=== PATIENT | female | born 1960 | race Caucasian/White ===

== ENCOUNTER 2022-10-29 10:31 | Inpatient (IN) | payer OTHER ==
[~2022-10-29] VITALS: Ht 160 cm; Wt 69.1 kg
[2022-10-29 10:47] LABS: Basophils # (auto) 0 10 ^3/uL (0-0.2); Basophils % (auto) 0.5 % (0.0-2.0); Eosinophils # (auto) 0.1 10 ^3/uL (0-0.8); Eosinophils % (auto) 1.5 % (0.0-7.0); Hematocrit 45.9 % (36.0-46.0); Hemoglobin 15.9 g/dL (12.2-16.2); Lymphocytes # (auto) 2.4 10 ^3/uL (0.4-5.4); Lymphocytes % (auto) 48.1 % (10.0-50.0); Mean Corpuscular Hemoglobin 32.6 pg (28.0-32.0); Mean Corpuscular Hgb Conc. 34.7 g/dL (32.0-36.0); Mean Corpuscular Volume 93.9 fL (80.0-100.0); Monocytes # (auto) 0.5 10 ^3/uL (0-1.3); Monocytes % (auto) 9.7 % (0.0-12.0); Neutrophils % (auto) 40.2 % (37.0-80.0); Nucleated Red Blood Cells % 0.2 %; Red Blood Cells 4.89 10^6/uL (4.0-5.20); Red Cell Distribution Width 12.5 % (11.8-14.3); White Blood Cell 5.1 10^3/uL (4.4-10.8)
[2022-10-29] MEDS ORDERED: ASPirin 325 MG TAB PO ONE (11:00)
[2022-10-29 11:05] LABS: Albumin 4.2 g/dL (3.4-5.0); BUN/Creatinine Ratio 20.7; Calcium 9.4 mg/dL (8.5-10.1); Potassium 3.8 mmol/L (3.5-5.1)
[2022-10-29 11:09] LABS: Bilirubin, Total 0.8 mg/dL (0.2-1.0); Total Protein 7.5 g/dL (6.4-8.2)
[2022-10-29] MEDS ORDERED: LABETALOL HCL 5 MG/ML 4ML SYRINGE IV ONE (11:15)
[2022-10-29] MEDS ORDERED: hydrALAZINE HCL 20 MG/ML VL IV ONE (15:30)
[2022-10-29] MEDS ORDERED: hydrALAZINE HCL 20 MG/ML VL IV PRN (16:00)
[2022-10-29] MEDS ORDERED: NITROGLYCERIN 0.4 MG SL TAB SL PRN (16:00)
[2022-10-29] MEDS ORDERED: ONDANSETRON HCL 4 MG/2 ML VIAL IV PRN (16:00)
[2022-10-29] MEDS ORDERED: MORPHINE SULFATE 4 MG/ML SYR/VIAL IV PRN (16:00)
[2022-10-29 16:35] LABS: Urine Amorphous Crystal FEW /hpf (None Seen); Urine Bacteria FEW /hpf (None Seen); Urine Blood 1+ /uL (Negative); Urine Mucus FEW (None Seen); Urine Specific Gravity 1.017 (1.001-1.035); Urine WBC 2 /hpf (0 - 5)
[2022-10-29] MEDS: SODIUM CHLORIDE 0.9% 1,000 ML IV SCH (16:41)
[2022-10-29 16:51] LABS: INR 1.02 (0.9-1.15)
[2022-10-29] MEDS: ACETAMINOPHEN 325 MG TAB PO PRN ×3 (17:05→23:30)
[2022-10-29] MEDS: ATORVASTATIN 20 MG TAB PO SCH (21:41)
[2022-10-30] MEDS: SODIUM CHLORIDE 0.9% 1,000 ML IV SCH ×3 (02:00→20:51)
[2022-10-30] MEDS ORDERED: HYDROcodone-ACET 5/325MG TAB PO ONE (02:30)
[2022-10-30 06:00] LABS: Basophils # (auto) 0 10 ^3/uL (0-0.2); Basophils % (auto) 0.3 % (0.0-2.0); Eosinophils # (auto) 0.1 10 ^3/uL (0-0.8); Eosinophils % (auto) 2.1 % (0.0-7.0); Hematocrit 43.7 % (36.0-46.0); Hemoglobin 14.8 g/dL (12.2-16.2); Lymphocytes # (auto) 1.6 10 ^3/uL (0.4-5.4); Lymphocytes % (auto) 28.1 % (10.0-50.0); Mean Corpuscular Hemoglobin 31.8 pg (28.0-32.0); Mean Corpuscular Hgb Conc. 33.9 g/dL (32.0-36.0); Monocytes # (auto) 0.5 10 ^3/uL (0-1.3); Monocytes % (auto) 9.7 % (0.0-12.0); Neutrophils # (auto) 3.3 10 ^3/uL (1.6-8.6); Neutrophils % (auto) 59.8 % (37.0-80.0); Nucleated Red Blood Cells % 0.1 %; Red Blood Cells 4.64 10^6/uL (4.0-5.20); Red Cell Distribution Width 12.8 % (11.8-14.3); White Blood Cell 5.5 10^3/uL (4.4-10.8)
[2022-10-30 06:40] LABS: Potassium 3.6 mmol/L (3.5-5.1)
[2022-10-30 06:53] LABS: Albumin 3.8 g/dL (3.4-5.0); BUN/Creatinine Ratio 21.4; Bilirubin, Total 1.1 mg/dL (0.2-1.0); Calcium 8.5 mg/dL (8.5-10.1); Total Protein 6.7 g/dL (6.4-8.2)
[2022-10-30] MEDS: LOSARTAN POTASSIUM 25 MG TAB PO SCH (08:58)
[2022-10-30] MEDS: PANTOPRAZOLE 40 MG/10 ML VIAL INJ IV SCH (08:59)
[2022-10-30] MEDS: ACETAMINOPHEN 325 MG TAB PO PRN (08:59)
[2022-10-30] MEDS: DOCUSATE SOD 100 MG CAP PO SCH (08:59)
[2022-10-30 09:26] VITALS: BP 151/86
[2022-10-30] MEDS ORDERED: ASPirin 81 mg TAB PO SCH (10:00)
[2022-10-30] MEDS ORDERED: amLODIPine BESYLATE 5 MG TAB PO ONE (13:15)
[2022-10-30 14:06] VITALS: BP 127/80
[2022-10-30 17:04] VITALS: BP 141/76
[2022-10-30] MEDS: ATORVASTATIN 20 MG TAB PO SCH (20:50)
[2022-10-30] MEDS ORDERED: LORazepam 2MG/ML-1ML VIAL IV PRN (21:45)
[2022-10-30 22:00] VITALS: BP 126/74
[2022-10-31 05:00] VITALS: BP 127/77
[2022-10-31 08:00] VITALS: BP 134/74
[2022-10-31] MEDS: SODIUM CHLORIDE 0.9% 1,000 ML IV SCH (08:00)
[2022-10-31] MEDS: PANTOPRAZOLE 40 MG/10 ML VIAL INJ IV SCH (09:48)
[2022-10-31] MEDS: DOCUSATE SOD 100 MG CAP PO SCH (09:50)
[2022-10-31] MEDS: LOSARTAN POTASSIUM 25 MG TAB PO SCH (09:50)
[2022-10-31] MEDS ORDERED: amLODIPine BESYLATE 5 MG TAB PO SCH (10:00)
[2022-10-31] MEDS ORDERED: LOSA25TA2 PO (10:24)
[2022-10-31] MEDS ORDERED: ATO40T PO (10:24)
[2022-10-31] MEDS ORDERED: AMLO-496 PO (10:24)
[2022-10-31] MEDS ORDERED: LISI20TA28 PO (10:39)
[2022-10-31 12:00] VITALS: BP 143/92
[2022-10-31 13:43] VITALS: BP 125/78
== END 2022-10-31 15:25 | disposition home or self-care (01) | DRG 304 ==
LOC: ER 10:35 → TELE 15:58 → TELE-WESTW 10-30 07:40
PROVIDERS: ADMIT Nurse Practitioner Family; ATTEND Family Medicine
DX: I16.1 Hypertensive emergency (principal); I67.83 Posterior reversible encephalopathy syndrome; I67.4 Hypertensive encephalopathy; Z20.822 Contact with and (suspected) exposure to COVID-19; I10 Essential (primary) hypertension; Z82.49 Family history of ischemic heart disease and other diseases of the circulatory system; Z88.0 Allergy status to penicillin; Z91.14 Patient's other noncompliance with medication regimen; Z88.8 Allergy status to other drugs, medicaments and biological substances; Z98.51 Tubal ligation status
CPT/HCPCS: 36415; 70450; 70551; 71045; 80053; 81001; 83735; 84484; 85025; 85610; 87426; 93005; 93306; 99291; C9113; G0378

== ENCOUNTER 2023-12-16 10:31 | Emergency (ER) | payer OTHER ==
[~2023-12-16] VITALS: Ht 160 cm; Wt 68.0 kg
[~2023-12-16 10:31] MED LIST: AMLO1TAB23 PO; ATO40T PO; LISI20TA56 PO; LOSA25TA5 PO
[2023-12-16] MEDS: PANTOPRAZOLE 40 MG/10 ML VIAL INJ IV ONE (11:17)
[2023-12-16 11:19] LABS: Basophils # (auto) 0 10 ^3/uL (0-0.2); Basophils % (auto) 0.5 % (0.0-2.0); Eosinophils # (auto) 0.1 10 ^3/uL (0-0.8); Eosinophils % (auto) 1.8 % (0.0-7.0); Hematocrit 46.2 % (36.0-46.0); Hemoglobin 15.8 g/dL (12.2-16.2); Lymphocytes # (auto) 2.5 10 ^3/uL (0.4-5.4); Lymphocytes % (auto) 40.4 % (10.0-50.0); Mean Corpuscular Hemoglobin 32.6 pg (28.0-32.0); Mean Corpuscular Hgb Conc. 34.3 g/dL (32.0-36.0); Mean Corpuscular Volume 95.1 fL (80.0-100.0); Monocytes # (auto) 0.5 10 ^3/uL (0-1.3); Monocytes % (auto) 8.8 % (0.0-12.0); Neutrophils % (auto) 48.5 % (37.0-80.0); Nucleated Red Blood Cells % 0.1 %; Red Blood Cells 4.86 10^6/uL (4.0-5.20); White Blood Cell 6.1 10^3/uL (4.4-10.8)
[2023-12-16] MEDS: ONDANSETRON HCL 4 MG/2 ML VIAL IV ONE (11:19)
[2023-12-16 11:34] LABS: Alanine Aminotransferase 17 U/L (7-40); Albumin 4.5 g/dL (3.2-4.8); Alkaline Phosphatase 65 U/L (46-116); Anion Gap 4 (5-15); Aspartate Aminotransferase 19 U/L (13-40); Bilirubin, Total 1.1 mg/dL (0.2-1.0); Blood Urea Nitrogen 9 mg/dL (9-23); Calcium 9.8 mg/dL (8.5-10.1); Carbon Dioxide 32 mmol/L (20-30); Chloride 103 mmol/L (98-107); Glucose 89 mg/dL (74-106); Potassium 3.7 mmol/L (3.5-5.1); Sodium 139 mmol/L (136-145); Total Protein 7.1 g/dL (5.7-8.2)
[2023-12-16] MEDS: cloNIDine HCL 0.1 MG TAB PO ONE (11:37)
[2023-12-16] MEDS ORDERED: ZOFR4T PO (11:45)
[2023-12-16] MEDS ORDERED: HYDR-4902 PO (11:45)
[2023-12-16 11:52] LABS: Lipase 36 U/L (12-53)
[2023-12-16] MEDS ORDERED: PANT40TA2 PO (12:03)
[2023-12-16 12:21] VITALS: BP 131/78; PULSE 77; RESP 16; O2SAT 97
[2023-12-16 12:30] LABS: Urine Bacteria NONE SEEN /hpf (None Seen); Urine Blood 1+ /uL (Negative); Urine Clarity Clear (Clear); Urine Protein, UAD Negative (Negative); Urine Specific Gravity 1.006 (1.001-1.035); Urine Urobilinogen Normal (Negative); Urine WBC <1 /hpf (0 - 5)
[2023-12-16 12:31] LABS: Urine Color Straw (Yellow)
== END 2023-12-16 12:23 | disposition home or self-care (01) ==
LOC: ER 10:31
DX: K82.8 Other specified diseases of gallbladder (principal); I10 Essential (primary) hypertension; Z79.899 Other long term (current) drug therapy; Z88.0 Allergy status to penicillin; Z88.1 Allergy status to other antibiotic agents
CPT/HCPCS: 36415; 76705; 80053; 81001; 83690; 85025; 96374; 96375; 99285; C9113; J2405

== ENCOUNTER 2023-12-28 19:06 | Emergency (ER) | payer OTHER ==
[~2023-12-28] VITALS: Ht 160 cm; Wt 65.0 kg
[~2023-12-28 19:06] MED LIST changes: -ATO40T PO; +ATOR-507 PO; +HYDR-4902 PO; +PANT40TA2 PO; +ZOFR4T PO
[2023-12-28 20:25] LABS: Basophils # (auto) 0 10 ^3/uL (0-0.2); Basophils % (auto) 0.5 % (0.0-2.0); Eosinophils # (auto) 0.1 10 ^3/uL (0-0.8); Hematocrit 47.1 % (36.0-46.0); Hemoglobin 16.1 g/dL (12.2-16.2); Lymphocytes # (auto) 2.8 10 ^3/uL (0.4-5.4); Lymphocytes % (auto) 41.9 % (10.0-50.0); Mean Corpuscular Hemoglobin 32.1 pg (28.0-32.0); Mean Corpuscular Hgb Conc. 34.2 g/dL (32.0-36.0); Monocytes # (auto) 0.7 10 ^3/uL (0-1.3); Monocytes % (auto) 9.8 % (0.0-12.0); Neutrophils # (auto) 3.1 10 ^3/uL (1.6-8.6); Neutrophils % (auto) 45.8 % (37.0-80.0); Nucleated Red Blood Cells % 0.1 %; Red Blood Cells 5.01 10^6/uL (4.0-5.20); Red Cell Distribution Width 13.1 % (11.8-14.3); White Blood Cell 6.7 10^3/uL (4.4-10.8)
[2023-12-28 20:36] LABS: Alanine Aminotransferase 14 U/L (7-40); Albumin 4.5 g/dL (3.2-4.8); Alkaline Phosphatase 63 U/L (46-116); Anion Gap 4 (5-15); Aspartate Aminotransferase 15 U/L (13-40); BUN/Creatinine Ratio 18.1 (10.0-20.0); Blood Urea Nitrogen 17 mg/dL (9-23); Calcium 9.7 mg/dL (8.7-10.4); Carbon Dioxide 30 mmol/L (20-30); Chloride 103 mmol/L (98-107); Glucose 98 mg/dL (74-106); Lipase 47 U/L (12-53); Potassium 3.6 mmol/L (3.5-5.1); Sodium 137 mmol/L (136-145)
[2023-12-28 20:37] LABS: Bilirubin, Total 0.7 mg/dL (0.2-1.0); Total Protein 7.6 g/dL (5.7-8.2)
[2023-12-28 20:46] LABS: Urine Bacteria NONE SEEN /hpf (None Seen); Urine Blood 2+ /uL (Negative); Urine Clarity Clear (Clear); Urine Color Yellow (Yellow); Urine Protein, UAD Negative (Negative); Urine Specific Gravity 1.015 (1.001-1.035); Urine Urobilinogen Normal (Negative); Urine WBC 2 /hpf (0 - 5)
[2023-12-28] MEDS: ONDANSETRON HCL 4 MG/2 ML VIAL IM ONE (21:25)
[2023-12-28] MEDS: MORPHINE SULFATE INJ 2 MG/ml SYRG IM ONE (21:25)
[2023-12-28] MEDS ORDERED: HYDR-4798 PO (22:56)
[2023-12-28] MEDS ORDERED: ZOFR4T PO (22:56)
[2023-12-28 23:08] VITALS: BP 99/69; PULSE 56; RESP 18; TEMP 98.3; O2SAT 99
== END 2023-12-28 23:07 | disposition home or self-care (01) ==
LOC: ER 19:06
DX: K82.8 Other specified diseases of gallbladder (principal); I10 Essential (primary) hypertension; Z79.899 Other long term (current) drug therapy; Z88.0 Allergy status to penicillin; Z88.1 Allergy status to other antibiotic agents
CPT/HCPCS: 36415; 74176; 76705; 80053; 81001; 83605; 83690; 83880; 84484; 85025; 87040; 96372; 99285; J2270; J2405

== ENCOUNTER 2024-03-01 06:19 | Inpatient (IN) | payer OTHER ==
[2024-02-29 15:36] LABS: Basophils # (auto) 0 10 ^3/uL (0-0.2); Basophils % (auto) 0.4 % (0.0-2.0); Eosinophils # (auto) 0.1 10 ^3/uL (0-0.8); Eosinophils % (auto) 1.9 % (0.0-7.0); Hematocrit 43.1 % (36.0-46.0); Hemoglobin 14.8 g/dL (12.2-16.2); Lymphocytes # (auto) 2.5 10 ^3/uL (0.4-5.4); Lymphocytes % (auto) 36.6 % (10.0-50.0); Mean Corpuscular Hemoglobin 32.4 pg (28.0-32.0); Mean Corpuscular Hgb Conc. 34.5 g/dL (32.0-36.0); Monocytes # (auto) 0.7 10 ^3/uL (0-1.3); Monocytes % (auto) 10.3 % (0.0-12.0); Neutrophils # (auto) 3.4 10 ^3/uL (1.6-8.6); Neutrophils % (auto) 50.8 % (37.0-80.0); Nucleated Red Blood Cells % 0.1 %; Red Blood Cells 4.58 10^6/uL (4.0-5.20); Red Cell Distribution Width 12.8 % (11.8-14.3); Urine Bacteria FEW /hpf (None Seen); Urine Blood 2+ /uL (Negative); Urine Clarity Turbid (Clear); Urine Color Light-Yellow (Yellow); Urine Protein, UAD Negative (Negative); Urine Specific Gravity 1.017 (1.001-1.035); Urine Urobilinogen Normal (Negative); Urine WBC 9 /hpf (0 - 5); Urine pH 5.5 (5.0-9.0); White Blood Cell 6.8 10^3/uL (4.4-10.8)
[2024-02-29 15:48] LABS: Alanine Aminotransferase 15 U/L (7-40); Albumin 4.2 g/dL (3.2-4.8); Alkaline Phosphatase 56 U/L (46-116); Anion Gap 6 (5-15); Aspartate Aminotransferase 17 U/L (13-40); BUN/Creatinine Ratio 19.4 (10.0-20.0); Blood Urea Nitrogen 18 mg/dL (9-23); Calcium 9.7 mg/dL (8.7-10.4); Carbon Dioxide 28 mmol/L (20-30); Chloride 104 mmol/L (98-107); Glucose 90 mg/dL (74-106); Potassium 3.4 mmol/L (3.5-5.1); Sodium 138 mmol/L (136-145)
[2024-02-29 15:49] LABS: Bilirubin, Total 0.9 mg/dL (0.2-1.0); Total Protein 6.8 g/dL (5.7-8.2)
[2024-02-29 16:22] LABS: INR 1.03 (0.9-1.15); Partial Thromboplastin Time 25.3 SEC (24.5-34.5); Prothrombin Time 10.9 sec (9.3-11.8)
[2024-03-01] VITALS (7 sets, daily range): BP systolic 124–135; BP diastolic 70–75; PULSE 71–83; RESP 16–20; TEMP 97.6–98.4; O2SAT 97–100
[~2024-03-01] VITALS: Ht 160 cm; Wt 90.0 kg
[~2024-03-01 06:19] MED LIST changes: -AMLO1TAB23 PO; -ATOR-507 PO; -LISI20TA56 PO; -LOSA25TA5 PO; +VALS80TA44 PO
[2024-03-01] MEDS: levoFLOXacin 500MG 100 ML IV ONE (06:33)
[2024-03-01] MEDS: ACETAMINOPHEN IV 100 ML IV ONE (06:42)
[2024-03-01] MEDS ORDERED: GABAPENTIN 400 MG CAP PO ONE (06:45)
[2024-03-01] MEDS ORDERED: CELECOXIB 100 MG CAP PO ONE (06:45)
[2024-03-01] MEDS ORDERED: ONDANSETRON HCL 4 MG/2 ML VIAL ONE (06:45)
[2024-03-01] MEDS ORDERED: KETAMINE 50mg/ML 1ml syringe ONE (06:45)
[2024-03-01] MEDS ORDERED: LIDOCAINE 2% (LOCAL ANESTH.) PF 5ml SDV ONE (06:45)
[2024-03-01] MEDS ORDERED: KETOROLAC TROMETH 30 MG/ML 1ML VIAL ONE (06:45)
[2024-03-01] MEDS: ACETAMINOPHEN IV 1000 MG/100ML (10MG/ML) IV ONE (06:45)
[2024-03-01] MEDS ORDERED: PROPOFOL 10 MG/ML 20 ML IV ONE (06:45)
[2024-03-01] MEDS ORDERED: GLYCOPYRROLATE 0.2 MG/ML 1ML VIAL ONE (06:45)
[2024-03-01] MEDS ORDERED: SUGAMMADEX 200mg/2ml Vial (100MG/ML) IV ONE (06:45)
[2024-03-01] MEDS ORDERED: ROCURONIUM 10MG/ML 10ML VIAL IV ONE (06:45)
[2024-03-01] MEDS ORDERED: DexAMETHasone SOD PHOS 10MG/1ML VIAL INJ ONE (06:45)
[2024-03-01] MEDS ORDERED: fentaNYL CITRATE 100 MCG/2 ML VL ONE (06:46)
[2024-03-01] MEDS ORDERED: LIDOCAINE HCL 2% TOP JELLY 5ML TOP ONE (06:46)
[2024-03-01] MEDS ORDERED: PHENYLEPHRINE HCL 10 MG/ML VL ONE (07:27)
[2024-03-01] MEDS ORDERED: SODIUM CHLORIDE LOCK 10 ML ONE (07:27)
[2024-03-01] MEDS ORDERED: ePHEDrine SULFATE 50 MG/ML AMP ONE (07:35)
[2024-03-01] MEDS ORDERED: diphenhdrAMINE HCL 50 MG/1 ML VL ONE (07:52)
[2024-03-01] MEDS: BUPIVACAINE 0.25% INJ 50ML VIAL ONE (08:10)
[2024-03-01] MEDS: LIDOCAINE W/ EPINEPHRINE 1% 20ML VIAL ONE (08:10)
[2024-03-01] MEDS ORDERED: LABETALOL HCL 5 MG/ML 4ML SYRINGE IV PRN (08:30)
[2024-03-01] MEDS ORDERED: hydrALAZINE HCL 20 MG/ML VL IV PRN (08:30)
[2024-03-01] MEDS ORDERED: FLUMAZENIL 0.1 MG/ML INJ 10ML MDV IV PRN (08:30)
[2024-03-01] MEDS ORDERED: NALOXONE HCL 0.4 MG/ML VIAL IV PRN (08:30)
[2024-03-01] MEDS ORDERED: fentaNYL CITRATE 100 MCG/2 ML VL IV PRN (08:30)
[2024-03-01] MEDS ORDERED: ePHEDrine SULFATE 50 MG/ML AMP IV PRN (08:30)
[2024-03-01] MEDS ORDERED: HYDROmorphone HCL 2 MG/ML VL/or syr IV PRN ×2 (08:45→12:00)
[2024-03-01] MEDS: HYDROmorphone HCL 2 MG/ML VL/or syr IV PRN (09:22)
[2024-03-01] MEDS: ONDANSETRON HCL 4 MG/2 ML VIAL IV PRN (10:10)
[2024-03-01] MEDS ORDERED: MORPHINE SULFATE INJ 2 MG/ml SYRG IV PRN (11:00)
[2024-03-01] MEDS ORDERED: NITROGLYCERIN 0.4 MG SL TAB SL PRN (11:00)
[2024-03-01] MEDS: oxyCODONE HCL 5MG TAB PO PRN (11:56)
[2024-03-01] MEDS: HYDROcodone-ACET 5/325MG TAB PO PRN (13:52)
[2024-03-01] MEDS ORDERED: CLINDAMYCIN 300MG IV 50 ML IV SCH (14:00)
[2024-03-01] MEDS: metroNIDAZOLE 500MG/100ML 100 ML IV SCH (14:00)
[2024-03-01] MEDS: SODIUM CHLORIDE 0.9% 1,000 ML IV SCH (15:25)
[2024-03-01] MEDS: metroNIDAZOLE 500 MG TAB PO SCH (15:28)
[2024-03-02] VITALS (8 sets, daily range): BP systolic 122–145; BP diastolic 62–75; PULSE 52–72; RESP 16–20; TEMP 97.6–98.6; O2SAT 90–99
[2024-03-02 07:19] LABS: Basophils # (auto) 0 10 ^3/uL (0-0.2); Basophils % (auto) 0.1 % (0.0-2.0); Eosinophils # (auto) 0 10 ^3/uL (0-0.8); Eosinophils % (auto) 0.2 % (0.0-7.0); Hematocrit 34.1 % (36.0-46.0); Hemoglobin 11.8 g/dL (12.2-16.2); Lymphocytes # (auto) 1.5 10 ^3/uL (0.4-5.4); Mean Corpuscular Hemoglobin 32.8 pg (28.0-32.0); Mean Corpuscular Hgb Conc. 34.6 g/dL (32.0-36.0); Mean Corpuscular Volume 94.9 fL (80.0-100.0); Monocytes # (auto) 0.7 10 ^3/uL (0-1.3); Monocytes % (auto) 8.5 % (0.0-12.0); Neutrophils # (auto) 5.8 10 ^3/uL (1.6-8.6); Neutrophils % (auto) 72.2 % (37.0-80.0); Red Blood Cells 3.59 10^6/uL (4.0-5.20); Red Cell Distribution Width 12.8 % (11.8-14.3)
[2024-03-02 07:34] LABS: Alanine Aminotransferase 29 U/L (7-40); Albumin 3.3 g/dL (3.2-4.8); Alkaline Phosphatase 45 U/L (46-116); Anion Gap 4 (5-15); Aspartate Aminotransferase 29 U/L (13-40); BUN/Creatinine Ratio 13.8 (10.0-20.0); Blood Urea Nitrogen 12 mg/dL (9-23); Calcium 8.7 mg/dL (8.5-10.1); Carbon Dioxide 28 mmol/L (20-30); Chloride 104 mmol/L (98-107); Glucose 119 mg/dL (74-106); Potassium 4.1 mmol/L (3.5-5.1); Sodium 136 mmol/L (136-145)
[2024-03-02 07:35] LABS: Bilirubin, Total 1.1 mg/dL (0.2-1.0); Total Protein 5.3 g/dL (5.7-8.2)
[2024-03-02] MEDS: cefTRIAXone 1GM/50ML D5W 50 ML IV SCH (09:12)
[2024-03-02] MEDS: PANTOPRAZOLE 40 MG/10 ML VIAL INJ IV SCH (09:12)
[2024-03-02] MEDS: VALSARTAN 80 MG TAB PO SCH (10:00)
[2024-03-02] MEDS: MORPHINE SULFATE INJ 2 MG/ml SYRG IV PRN (12:05)
[2024-03-03] VITALS (7 sets, daily range): BP systolic 138–181; BP diastolic 72–84; PULSE 56–93; RESP 16–20; TEMP 97.5–99.3; O2SAT 93–95
[2024-03-03] MEDS: ACETAMINOPHEN 325 MG TAB PO PRN (01:40)
[2024-03-03] MEDS: hydrALAZINE HCL 20 MG/ML VL IV PRN (05:19)
[2024-03-03] MEDS: ONDANSETRON HCL 4 MG/2 ML VIAL IV PRN (05:55)
[2024-03-03] MEDS ORDERED: ACETAMINOPHEN 325 MG TAB PO PRN (09:00)
[2024-03-03 10:34] LABS: Basophils # (auto) 0 10 ^3/uL (0-0.2); Basophils % (auto) 0.2 % (0.0-2.0); Eosinophils # (auto) 0 10 ^3/uL (0-0.8); Hematocrit 40.3 % (36.0-46.0); Hemoglobin 13.9 g/dL (12.2-16.2); Lymphocytes # (auto) 1.1 10 ^3/uL (0.4-5.4); Lymphocytes % (auto) 10.3 % (10.0-50.0); Mean Corpuscular Hemoglobin 32.5 pg (28.0-32.0); Mean Corpuscular Hgb Conc. 34.4 g/dL (32.0-36.0); Mean Corpuscular Volume 94.6 fL (80.0-100.0); Monocytes # (auto) 0.6 10 ^3/uL (0-1.3); Neutrophils # (auto) 8.7 10 ^3/uL (1.6-8.6); Neutrophils % (auto) 83.5 % (37.0-80.0); Nucleated Red Blood Cells % 0.1 %; Red Blood Cells 4.26 10^6/uL (4.0-5.20); White Blood Cell 10.4 10^3/uL (4.4-10.8)
[2024-03-03 10:52] LABS: Alanine Aminotransferase 30 U/L (7-40); Albumin 3.8 g/dL (3.2-4.8); Alkaline Phosphatase 53 U/L (46-116); Anion Gap 3 (5-15); Aspartate Aminotransferase 22 U/L (13-40); BUN/Creatinine Ratio 11.5 (10.0-20.0); Bilirubin, Total 0.7 mg/dL (0.2-1.0); Blood Urea Nitrogen 7 mg/dL (9-23); Calcium 8.8 mg/dL (8.5-10.1); Carbon Dioxide 28 mmol/L (20-30); Chloride 108 mmol/L (98-107); Glucose 109 mg/dL (74-106); Potassium 3.2 mmol/L (3.5-5.1); Sodium 139 mmol/L (136-145); Total Protein 6.2 g/dL (5.7-8.2)
[2024-03-03] MEDS: METOCLOPRAMIDE HCL 5MG/ml INJ 2ml VIAL IV SCH (11:46)
[2024-03-03] MEDS ORDERED: POTASSIUM EFFERVESENT TAB 25 MEQ GT ONE (14:30)
[2024-03-03] MEDS: POTASSIUM EFFERVESENT TAB 25 MEQ PO ONE (15:47)
[2024-03-03] MEDS: POTASSIUM CHLORIDE 40 MEQ, LIDOCAINE 1% (LOCAL ANESTH.) 4 ML in SODIUM CHL 0.9% 250 ML IV ONE (16:06)
[2024-03-03] MEDS ORDERED: VALSARTAN HCTZ PO SCH (22:00)
[2024-03-04 01:00] VITALS: BP 148/58; PULSE 95; RESP 20; TEMP 98.1; O2SAT 95
[2024-03-04] MEDS: VALSARTAN HCTZ PO SCH (02:14)
[2024-03-04 05:00] VITALS: BP 157/82; PULSE 84; RESP 20; TEMP 98.2; O2SAT 95
[2024-03-04 06:07] LABS: Basophils # (auto) 0 10 ^3/uL (0-0.2); Basophils % (auto) 0.2 % (0.0-2.0); Eosinophils # (auto) 0 10 ^3/uL (0-0.8); Eosinophils % (auto) 0.6 % (0.0-7.0); Hematocrit 40.9 % (36.0-46.0); Hemoglobin 14.2 g/dL (12.2-16.2); Lymphocytes # (auto) 2.3 10 ^3/uL (0.4-5.4); Lymphocytes % (auto) 27.7 % (10.0-50.0); Mean Corpuscular Hemoglobin 32.9 pg (28.0-32.0); Mean Corpuscular Hgb Conc. 34.7 g/dL (32.0-36.0); Mean Corpuscular Volume 94.7 fL (80.0-100.0); Monocytes # (auto) 0.8 10 ^3/uL (0-1.3); Monocytes % (auto) 10.3 % (0.0-12.0); Neutrophils % (auto) 61.2 % (37.0-80.0); Red Blood Cells 4.31 10^6/uL (4.0-5.20); Red Cell Distribution Width 12.9 % (11.8-14.3); White Blood Cell 8.2 10^3/uL (4.4-10.8)
[2024-03-04 06:28] LABS: Alanine Aminotransferase 27 U/L (7-40); Albumin 3.8 g/dL (3.2-4.8); Alkaline Phosphatase 54 U/L (46-116); Anion Gap 3 (5-15); Aspartate Aminotransferase 20 U/L (13-40); BUN/Creatinine Ratio 8.5 (10.0-20.0); Blood Urea Nitrogen 6 mg/dL (9-23); Calcium 9.3 mg/dL (8.7-10.4); Carbon Dioxide 29 mmol/L (20-30); Chloride 107 mmol/L (98-107); Glucose 100 mg/dL (74-106); Potassium 3.4 mmol/L (3.5-5.1); Sodium 139 mmol/L (136-145)
[2024-03-04 06:29] LABS: Bilirubin, Total 1.1 mg/dL (0.2-1.0); Total Protein 6.4 g/dL (5.7-8.2)
[2024-03-04 09:00] VITALS: BP_SYST 158; BP_SYST 173; BP_DIAS 87; BP_DIAS 93; PULSE 71; RESP 14; TEMP 98.7; O2SAT 95
[2024-03-04 13:00] VITALS: BP_SYST 159; BP_SYST 165; BP_DIAS 91; BP_DIAS 95; PULSE 83; RESP 16; TEMP 98.7; O2SAT 98
[2024-03-04 14:45] VITALS: TEMP 37.1
== END 2024-03-04 15:10 | disposition home or self-care (01) | DRG 418 ==
LOC: SUR 06:19 → OVERFLOW 11:00 → CENTRAL 11:37
PROVIDERS: ADMIT Internal Medicine; ATTEND Internal Medicine
PROC: 0FT44ZZ Resection of Gallbladder, Percutaneous Endoscopic Approach (ICD-10-PCS; principal; 2024-03-01 07:11)
DX: K80.10 Calculus of gallbladder with chronic cholecystitis without obstruction (principal); N39.0 Urinary tract infection, site not specified; R71.0 Precipitous drop in hematocrit; E66.01 Morbid (severe) obesity due to excess calories; E87.6 Hypokalemia; K66.0 Peritoneal adhesions (postprocedural) (postinfection); I73.9 Peripheral vascular disease, unspecified; I10 Essential (primary) hypertension; Z88.1 Allergy status to other antibiotic agents; Z88.0 Allergy status to penicillin; Z68.35 Body mass index [BMI] 35.0-35.9, adult
CPT/HCPCS: 36415; 80053; 81001; 83735; 85025; 85610; 85730; 86850; 86900; 86901; 87086; C9113; G0378; J0131; J1100; J1885; J1956; J2001; J2405; J2704; J3490